=== PATIENT | male | born 1980 | race Caucasian/White ===

== ENCOUNTER 2020-04-03 14:41 | Emergency (ER) | payer OTHER ==
[~2020-04-03] VITALS: Ht 185.4 cm; Wt 90.9 kg
[2020-04-03 14:48] VITALS: BP 142/85; TEMP 98.8
[2020-04-03 16:22] VITALS: PULSE 95
== END 2020-04-03 16:22 | disposition home or self-care (01) ==
LOC: COL.ER 14:41
DX: S93.402A Sprain of unspecified ligament of left ankle, initial encounter (principal); X50.1XXA Overexertion from prolonged static or awkward postures, initial encounter

== ENCOUNTER 2021-03-13 16:58 | Emergency (ER) | payer SELFPAY ==
[~2021-03-13] VITALS: Ht 185.4 cm; Wt 90.9 kg
[2021-03-13 17:19] VITALS: TEMP 98.2
[2021-03-13 17:54] VITALS: BP 124/85; PULSE 87
== END 2021-03-13 17:54 | disposition home or self-care (01) ==
LOC: COL.ER 16:58
DX: K40.20 Bilateral inguinal hernia, without obstruction or gangrene, not specified as recurrent (principal); Z90.49 Acquired absence of other specified parts of digestive tract

== ENCOUNTER 2021-03-27 12:23 | Day surgery (SDC) | payer SELFPAY ==
[~2021-03-27] VITALS: Ht 185.4 cm; Wt 89.9 kg
[2021-03-27 12:53] VITALS: BP 114/64; PULSE 88; TEMP 97.9
[2021-03-27] MEDS ORDERED: NORCO 325 MG-51 TAB PO (16:12)
[2021-03-27 16:36] VITALS: TEMP 97.9
[2021-03-27 17:05] VITALS: BP 111/52; PULSE 78
--- NOTE | 2021-03-27 17:05 | NUR ---
Patient returns to room 5 per cart from PACU accompanied by Roxie SCHMITT and is awake and alert. Temp 98.2 and room air sats 98%. Bandaids x3 on abdomen clean and intact. IV fluids infusing and site is free of redness or swelling. Scrotal support in place. Siderails up x2 and call light in reach.
[2021-03-27 17:20] VITALS: BP 112/68; PULSE 69
--- NOTE | 2021-03-27 17:20 | NUR ---
Drinking Sprite and eating applesauce. Friend in room. States that he is having pain at 6-710.
[2021-03-27 17:35] VITALS: BP 114/64; PULSE 80
--- NOTE | 2021-03-27 17:35 | NUR ---
Medicated with [place] 5mg one tab. Eating toast. Denies nausea.
[2021-03-27 17:50] VITALS: BP 110/63; PULSE 88
--- NOTE | 2021-03-27 17:50 | NUR ---
Offers no further complaints of discomfort. Tolerates snack and Sprite.
--- NOTE | 2021-03-27 18:00 | NUR ---
IV to INT and assisted up to the bathroom. Gait steady. Voids and returns to room. INT discontinued. Assisted with dressing.
--- NOTE | 2021-03-27 18:06 | NUR ---
Given dismissal instructions and voices understanding of these. Friend Ildefonso in the room and also voices understanding of these. Provided office number to call and make follow up appointment.
--- NOTE | 2021-03-27 18:13 | NUR ---
Dismissal instructions signed and assisted into wheelchair. Patient dismissed to home driven by friend and assisted into car by this RN with dismissal instructions in hand.
== END 2021-03-27 18:13 | disposition home or self-care (01) ==
LOC: SDCO 12:23
DX: K40.20 Bilateral inguinal hernia, without obstruction or gangrene, not specified as recurrent (principal); Z87.891 Personal history of nicotine dependence
CPT/HCPCS: C1781; J0690; J1100; J1885; J2405; J2704; J3010; J7120

== ENCOUNTER 2021-04-03 09:57 | Emergency (ER) | payer SELFPAY ==
[~2021-04-03] VITALS: Ht 185.4 cm; Wt 90.9 kg
[~2021-04-03 09:57] MED LIST: NORCO 325 MG-51 TAB PO
[2021-04-03 10:25] VITALS: TEMP 97.5
[2021-04-03 12:47] VITALS: BP 135/84; PULSE 88
== END 2021-04-03 12:49 | disposition home or self-care (01) ==
LOC: COL.ER 09:57
DX: G43.909 Migraine, unspecified, not intractable, without status migrainosus (principal); F17.200 Nicotine dependence, unspecified, uncomplicated
CPT/HCPCS: J1200; J1885; J2405; J3030